=== PATIENT | female | born 1995 | race American Indian/Alaskan Native ===

== ENCOUNTER 2019-07-29 00:26 | Emergency (ER) | payer SELFPAY ==
[2019-07-29] MEDS ORDERED: IBUPROFEN PO ONE (03:02)
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
[2019-07-29 03:33] VITALS: BP 140/93
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
== END 2019-07-29 03:30 | disposition home or self-care (01) ==
LOC: ED 00:26
DX: M25.551 Pain in right hip (principal); Z91.048 Other nonmedicinal substance allergy status